=== PATIENT | male | born 2000 | race Hispanic/Latino ===

== ENCOUNTER 2021-08-03 09:26 | Emergency (ER) | payer OTHER ==
[2021-08-03] MEDS ORDERED: Morphine 4 MG/ML VIAL ONE ×2 (09:48→10:37)
[2021-08-03] MEDS ORDERED: Ketorolac Tromethamine 30 MG/ML VIAL ONE (10:41)
== END 2021-08-03 11:18 | disposition home or self-care (01) ==
LOC: NAV ERS 09:26
DX: S82.225A Nondisplaced transverse fracture of shaft of left tibia, initial encounter for closed fracture (principal); W20.8XXA Other cause of strike by thrown, projected or falling object, initial encounter
CPT/HCPCS: 29505; 96374; 96375; 96376; J1885; J2270